=== PATIENT | male | born 1985 | race Caucasian/White ===

== ENCOUNTER 2020-08-15 02:19 | Emergency (ER) | payer OTHER ==
[2020-08-15] MEDS ORDERED: Ketorolac Tromethamine 30 MG/ML VIAL ONE (02:46)
--- NOTE | 2020-08-15 08:14 | CT ---
PRELIMINARY REPORT/[facility]/EMERGENCY AFTER HOURS PROCEDURE: EXAM: CT Pelvis Without Intravenous Contrast. CLINICAL HISTORY: Fell out of tree 8 days ago seen by and don with bruising c/o sharp pain on hip that radiates to th igh and groin TECHNIQUE: Axial computed tomography images of the pelvis without intravenous contrast. CONTRAST: None. COMPARISON: None provided. FINDINGS: HIP JOINTS: No dislocation. The joint spaces are normal. BONES: No acute fracture or focal osseous lesion. No suspicious focal osseous lesions. SOFT TISSUES: The pelvic viscera are unremarkable. No fluid collection, hematoma or mass. No radiopaque foreign bod y or soft tissue gas. IMPRESSION: No acute abnormality. ELECTRONICALLY SIGNED BY: Sharan Hassan MD Aug 15, 2020 3:28:33 AM [employer] This report is intended for review by the ordering physician only, in accordance of law. If you recei ve this report in error, please call [facility] at [phone]. FINAL REPORT CT PELVIS WITHOUT CONTRAST: INDICATION: Trauma with injury and pain to pelvis. FINDINGS: The bony pelvis appears intact. No fracture identified. No soft tissue abnormality. IMPRESSION: No acute finding. I am in agreement with the preliminary report. POS: [facility]
== END 2020-08-15 04:03 | disposition home or self-care (01) ==
LOC: ERS 02:19
DX: S70.01XA Contusion of right hip, initial encounter (principal); F17.210 Nicotine dependence, cigarettes, uncomplicated; W17.89XA Other fall from one level to another, initial encounter
CPT/HCPCS: 72192; 96372; J1885